=== PATIENT | male | born 1990 | race American Indian/Alaskan Native ===

== ENCOUNTER 2017-05-25 15:03 | Emergency (ER) | payer MEDICAID, OTHER ==
[2017-05-25 16:15] VITALS: BMI 30.4
[2017-05-25 16:19] VITALS: BP 122/72; PULSE 89; RESP 16; TEMP 99; O2SAT 98
[2017-05-25] MEDS ORDERED: cefTRIAXone (Rocephin) 250 mg Inj IM STA (17:20)
[2017-05-25 17:47] LABS: URINE BILIRUBIN NEGATIVE (NEGATIVE); URINE BLOOD NEGATIVE (NEGATIVE); URINE GLUCOSE (UA) NEGATIVE (NEGATIVE); URINE LEUKOCYTE ESTERASE MODERATE Leu/uL (NEGATIVE); URINE NITRATE NEGATIVE (NEGATIVE); URINE PROTEIN NEGATIVE mg/dL (<30 mg/dL); URINE UROBILINOGEN 0.2 E.U./dL (<1 E.U./dL)
[2017-05-25 17:49] LABS: URINE COLOR YELLOW (YELLOW)
[2017-05-25 18:09] LABS: URINE APPEARANCE SL CLOUDY (CLEAR); URINE BACTERIA FEW (NEG); URINE RBC NEGATIVE /hpf (0-2)
--- NOTE | 2017-05-25 19:13 | ED PDOC ---
Arrival/HPI - General Chief Complaint: Male Genitourinary Time Seen by Provider: 05/25/17 16:21 Historian: Patient - History of Present Illness Narrative History of Present Illness (Text): 05/25/17 19:21 27-year-old male presents today with dysuria and urinary frequency as well as a two-week history of penile discharge. Patient with a history of gonorrhea and chlamydia. Patient states he's been having penile discharge for the past 2 weeks. Patient states he is now having pain in the testicles. Patient states he had gonorrhea when he was 21 with similar symptoms. He denies abdominal pain. No nausea or vomiting. Denies dizziness or weakness. No other complaints Time/Duration: > week (2 weeks) Past Medical History - Provider Review Nursing Documentation Reviewed: Yes - Travel History Have you recently traveled outside [place] w/in the past 3 mons?: No - Infectious Disease Hx of Infectious Diseases: None - Psychiatric Hx Substance Use: No - Anesthesia Hx Anesthesia: No Family/Social History - Physician Review Nursing Documentation Reviewed: Yes Family/Social History: Unknown Family HX Smoking Status: Heavy Smoker > 10 Cigarettes Daily Hx Alcohol Use: Yes Frequency of alcohol use: Socially Hx Substance Use: No Allergies/Home Meds Allergies/Adverse Reactions: Allergies No Known Allergies Allergy (Verified 05/25/17 16:15) Home Medications: Home Meds Medication Instructions Recorded Confirmed No Known Home Med 05/25/17 05/25/17 Review of Systems - Review of Systems Constitutional: absent: Fatigue, Fevers Respiratory: absent: SOB, Cough Cardiovascular: absent: Chest Pain, Palpitations Gastrointestinal: absent: Abdominal Pain, Nausea, Vomiting Genitourinary Male: Dysuria, Other (penile discharge, testicular pain) Musculoskeletal: absent: Back Pain, Neck Pain Skin: absent: Rash, Pruritis Neurological: absent: Headache, Dizziness Psychiatric: absent: Anxiety, Depression Physical Exam Vital Signs Reviewed: Yes Vital Signs Temp Pulse Resp BP Pulse Ox 05/25/17 16:17 99.0 F 89 16 122/72 98 Temperature: Afebrile Blood Pressure: Normal Pulse: Regular Respiratory Rate: Normal Appearance: Positive for: Well-Appearing, Non-Toxic, Comfortable Pain Distress: None Mental Status: Positive for: Alert and Oriented X 3 - Systems Exam Head: Present: Atraumatic Respiratory/Chest: Present: Clear to Auscultation Cardiovascular: Present: Regular Rate and Rhythm Abdomen: No: Tenderness Genitourinary Male: Present: Normal External Genitalia, Circumcised Penis, Testicle Tenderness (+ b/l testicular tenderness, no erythema; no edema, no ecchymosis; ), Other (chaparoned by ER security controls assessor Latoshadeniseodette Domingo. ). No: Lesions, Penile Discharge, Penile Swelling, Masses, Erythema, Testicle Swelling Neurological: Present: GCS=15, Speech Normal Skin: Present: Warm, Dry, Normal Color Psychiatric: Present: Alert, Oriented x 3 Medical Decision Making ED Course and Treatment: 27yr old male with dysuria and penile discharge and testicular pain; hx of gonorrhea ua: gc/chlamydia pending Rocephin and Zithromax ordered Testicular ultrasound ordered 05/25/17 19:09 pt left ER without treatment; patient did not receive antibiotics or ultrasound. impression; testicular pain, penile discharge, dysuria LEFT WITHOUT TREATMENT. - Lab Interpretations Lab Results: Lab Results 05/25/17 17:30: Urine Color Yellow, Urine Appearance Sl cloudy, Urine pH 6.0, Ur Specific [place] <= 1.005, Urine Protein Negative, Urine Glucose (UA) Negative, Urine Ketones Negative, Urine Blood Negative, Urine Nitrate Negative, Urine Bilirubin Negative, Urine Urobilinogen 0.2, Ur Leukocyte Esterase Moderate H, Urine RBC Negative, Urine WBC 2 - 5, Ur Epithelial Cells 1 - 3, Urine Bacteria Few - RAD Interpretation Radiology Orders: 05/25/17 17:20 TESTES DUPLEX COMPLETE [US] Stat - Medication Orders Current Medication Orders: Discontinued Medications Azithromycin (Zithromax) 1,000 mg PO STAT STA PRN Reason: Protocol Stop: 05/25/17 17:21 Ceftriaxone Sodium (Rocephin) 250 mg IM STAT STA PRN Reason: Protocol Stop: 05/25/17 17:21 Ketorolac Tromethamine (Toradol) 60 mg IM STAT STA Stop: 05/25/17 17:21 Disposition/Present on Arrival - Present on Arrival Any Indicators Present on Arrival: No History of DVT/PE: No History of Uncontrolled Diabetes: No Urinary Catheter: No History of Decub. Ulcer: No History Surgical Site Infection Following: None - Disposition Have Diagnosis and Disposition been Completed?: Yes Diagnosis: Penile discharge, Dysuria, Testicular pain Disposition: LEFT W/O TREATMENT - ER ONLY Disposition Time: 19:09 Patient Plan: Other (ELOPED) Patient Problems: Current Active Problems Problem Status Onset Dysuria Acute Penile discharge Acute Testicular pain Acute Condition: UNKNOWN
== END 2017-05-25 18:00 | disposition left against medical advice (07) ==
LOC: ED 15:03
DX: R36.9 Urethral discharge, unspecified (principal); R30.0 Dysuria; N50.812 Left testicular pain; N50.811 Right testicular pain